=== PATIENT | male | born 1940 | race Caucasian/White ===

== ENCOUNTER → 2016-06-12 | Outpatient (CLI) | payer MEDICARE ==
--- NOTE | 2016-06-13 11:06 | ECHOF ---
Referral Reason:I42.0 cardiomyopathy MEASUREMENTS -------- HEIGHT: 182.9 cm WEIGHT: 102.1 kg BP: 148/71 RVIDd: 2.9 cm (< 3.3) IVSd: 1.2 cm (0.6 - 1.1) LVIDd: 4.9 cm (3.9 - 5.3) LVPWd: 1.1 cm (0.6 - 1.1) IVSs: 1.7 cm LVIDs: 3.0 cm LVPWs: 1.6 cm LA Diam: 3.9 cm (2.7 - 3.8) LAESV Index (A-L): 24.66 ml/m Ao Diam: 3.5 cm (2.0 - 3.7) AV Cusp: 2.6 cm (1.5 - 2.6) MV EXCURSION: 17.896 mm (> 18.000) MV EF SLOPE: 13 mm/s (70 - 150) EPSS: 0.6 cm MV E Holland: 0.49 m/s MV DecT: 181 ms MV A Holland: 0.77 m/s MV E/A Ratio: 0.63 AV maxP.49 mmHg AV meanP.18 mmHg RAP: 5.00 mmHg RVSP: 28.65 mmHg FINDINGS -------- Sinus rhythm. This was a technically good study. The left ventricular size is normal. There is borderline concentric left ventricular hypertrophy. Overall left ventricular systolic function is normal with, an EF between 55 - 60 %. The right ventricle is normal in size. Normal LA size by volume 22+/-6 ml/m2. The right atrium is normal in size. Interatrial septal aneurysm. Aortic valve is trileaflet and is mildly thickened. The mitral valve is normal. There is trace mitral regurgitation. Mild tricuspid regurgitation present. Right ventricular systolic pressure is normal at < 35 mmHg. Trace/mild (physiologic) pulmonic regurgitation. The aortic root size is normal. Normal inferior vena cava with normal inspiratory collapse consistent with estimated right atrial pressure of 5 mmHg. There is no pericardial effusion. CONCLUSIONS -------- 1. Sinus rhythm. 2. Right ventricular systolic pressure is normal at < 35 mmHg. 3. Trace/mild (physiologic) pulmonic regurgitation. 4. The aortic root size is normal. 5. Normal inferior vena cava with normal inspiratory collapse consistent with estimated right atrial pressure of 5 mmHg. 6. There is no pericardial effusion. 7. This was a technically good study. 8. There is borderline concentric left ventricular hypertrophy. 9. Overall left ventricular systolic function is normal with, an EF between 55 - 60 %. 10. Normal LA size by volume 22+/-6 ml/m2. 11. Interatrial septal aneurysm. 12. Aortic valve is trileaflet and is mildly thickened. 13. There is trace mitral regurgitation. 14. Mild tricuspid regurgitation present. EVENTS DIRECTOR: Violetta Saini RDCS
== END ==
LOC: RADECHMAIN 12:59
PROVIDERS: ATTEND Family Medicine
DX: I37.1 Nonrheumatic pulmonary valve insufficiency (principal); I51.7 Cardiomegaly; I25.3 Aneurysm of heart; I08.1 Rheumatic disorders of both mitral and tricuspid valves
CPT/HCPCS: 93306

== ENCOUNTER 2017-12-10 12:28 | Observation (INO) | payer MEDICARE ==
[2017-12-10 13:40] LABS: Glucose,Whole Blood 84 mg/dL (75-99)
[2017-12-10 13:53] LABS: Basophils % (A) 0 %; Eosinophils # (A) 0.2 k/uL (0-0.7); Eosinophils % (A) 3 %; HCT 39.9 % (39.0-53.0); HGB 13.4 gm/dL (13.0-17.5); Lymphocytes % (A) 20 %; MCH 31.5 pg (25.0-35.0); MCHC 33.6 g/dL (31.0-37.0); MCV 93.9 fL (80.0-100.0); Monocytes # (A) 0.3 k/uL (0-1.0); Monocytes % (A) 5 %; Neutrophils # (A) 3.4 k/uL (1.3-7.7); Neutrophils % (A) 69 %; Platelet Count 192 k/uL (150-450); RBC 4.25 m/uL (4.30-5.90); RDW 13.5 % (11.5-15.5); WBC 4.9 k/uL (3.8-10.6)
[2017-12-10 14:08] LABS: ALT 22 U/L (21-72); AST 23 U/L (17-59); Albumin 4.3 g/dL (3.5-5.0); Alkaline Phosphatase 72 U/L (38-126); Anion Gap 10 mmol/L; Blood Urea Nitrogen 16 mg/dL (9-20); Calcium 9.4 mg/dL (8.4-10.2); Carbon Dioxide 26 mmol/L (22-30); Chloride 104 mmol/L (98-107); Glucose 86 mg/dL (74-99); Potassium 4.5 mmol/L (3.5-5.1); Sodium 140 mmol/L (137-145); Total Bilirubin 0.7 mg/dL (0.2-1.3); Total Protein 7.1 g/dL (6.3-8.2)
[2017-12-10 14:09] LABS: INR 1.1 (<1.2); Partial Thromboplastin Time 23.8 sec (22.0-30.0); Prothrombin Time 10.5 sec (9.0-12.0)
[2017-12-10 14:28] LABS: Creatine Kinase MB 1.9 ng/mL (0.0-2.4)
[2017-12-10 14:34] LABS: Troponin I 0.045 ng/mL (0.000-0.034)
[2017-12-10] MEDS ORDERED: MECLIZINE 25 MG TAB PO STA (15:17)
--- NOTE | 2017-12-10 15:24 | ED ---
General Adult HPI - General Chief complaint: Dizziness Stated complaint: arm pain/dizziness/left side facial pain Time Seen by Provider: 12/10/17 15:00 Source: patient, RN notes reviewed Mode of arrival: wheelchair Limitations: no limitations - History of Present Illness Initial comments: This is a 77-year-old male who presents emergency Department complaining of dizziness. Patient states he rolled over in bed in the room started spinning. Patient states he rolled over the otherwise started spinning again. Patient states she has some tingling to the left side of his face but it was not numb. Patient's family states there was some facial droop earlier. Patient was unaware of this. Patient denies any headache patient denies any coordination problems currently patient denies any dizziness currently. Patient states it was definitely associated with rolling to the right or rolling to the left. Patient denies any chest pain or palpitations. Patient denies any difficulty breathing or shortness of breath. Patient denies any recent fever chills or cough. Patient denies abdominal pain patient denies nausea or vomiting. - Related Data Home Medications Medication Instructions Recorded Confirmed Atorvastatin [Lipitor] 20 mg PO HS 12/10/17 12/10/17 Carvedilol [Coreg] 3.125 mg PO BID 12/10/17 12/10/17 Levothyroxine Sodium [Synthroid] 75 mcg PO DAILY 12/10/17 12/10/17 Allergies Allergy/AdvReac Type Severity Reaction Status Date / Time No Known Allergies Allergy Verified 12/10/17 14:50 Review of Systems ROS Statement: Those systems with pertinent positive or pertinent negative responses have been documented in the HPI. ROS Other: All systems not noted in ROS Statement are negative. Past Medical History Past Medical History: Cancer, Hyperlipidemia, Hypertension, Thyroid Disorder Additional Past Medical History / Comment(s): colon cancer History of Any Multi-Drug Resistant Organisms: None Reported Past Surgical History: Bowel Resection, Hernia Repair Additional Past Surgical History / Comment(s): colostomy Past Psychological History: No Psychological Hx Reported Smoking Status: Former smoker Past Alcohol Use History: Occasional Past Drug Use History: None Reported General Exam - General Exam Comments Initial Comments: GENERAL: Patient is well-developed and well-nourished. Patient is nontoxic and well- hydrated and is in no acute distress. ENT: Neck is soft and supple. No significant lymphadenopathy is noted. Oropharynx is clear. Moist mucous membranes. Neck has full range of motion without eliciting any pain. EYES: The sclera were anicteric and conjunctiva were pink and moist. Extraocular movements were intact and pupils were equal round and reactive to light. Eyelids were unremarkable. PULMONARY: Unlabored respirations. Good breath sounds bilaterally. No audible rales rhonchi or wheezing was noted. CARDIOVASCULAR: There is a regular rate and rhythm without any murmurs gallops or rubs. ABDOMEN: Soft and nontender with normal bowel sounds. No palpable organomegaly was noted. There is no palpable pulsatile mass. SKIN: Skin is clear with no lesions or rashes and otherwise unremarkable. NEUROLOGIC: Patient is alert and oriented x3. Cranial nerves II through XII are grossly intact. Motor and sensory are also intact. Normal speech, volume and content. Symmetrical smile. Finger to nose cerebellar testing is negative. MUSCULOSKELETAL: Normal extremities with adequate strength and full range of motion. No lower extremity swelling or edema. No calf tenderness. LYMPHATICS: No significant lymphadenopathy is noted PSYCHIATRIC: Normal psychiatric evaluation. Normal interpersonal interactions appears functionally intact in deals appropriately with others. No signs of depression. No signs of anxiety. Limitations: no limitations Course Vital Signs 12/10/17 12:37 Temperature 98.3 F Pulse Rate 63 Respiratory 20 Rate Blood Pressure 143/82 O2 Sat by Pulse 96 Oximetry Medical Decision Making - Medical Decision Making Patient was not brought back to the room for 2-1/2 hours and not until his labs were already back and a troponin was elevated. Staff was early told that the EKG was abnormal to put him in a room as soon as possible that did not occur to almost 3 PM and when the patient was in the room no oxygen was applied and the patient was not on a monitor worker. An EKG was done at 1326 IM being made aware of this EKG at 323. EKG shows a normal sinus rhythm at 64 bpm GA interval is 206 QRS is 124 QT interval is 436 QTC is 449. Patient's EKG shows T-wave abnormalities in inferior leads as well as precordial leads V3 through V6. Patient has a right bundle branch block CT of the brain shows no acute abnormality. Patient's troponin was elevated. - Lab Data Result diagrams: 12/10/17 13:40 12/10/17 13:40 Lab Results 09/17/18 09/17/18 09/17/18 Range/Units 13:38 13:40 13:40 WBC 4.9 (3.8-10.6) k/uL RBC 4.25 L (4.30-5.90) m/uL Hgb 13.4 (13.0-17.5) gm/dL Hct 39.9 (39.0-53.0) % MCV 93.9 (80.0-100.0) fL MCH 31.5 (25.0-35.0) pg MCHC 33.6 (31.0-37.0) g/dL RDW 13.5 (11.5-15.5) % Plt Count 192 (150-450) k/uL Neutrophils % 69 % Lymphocytes % 20 % Monocytes % 5 % Eosinophils % 3 % Basophils % 0 % Neutrophils # 3.4 (1.3-7.7) k/uL Lymphocytes # 1.0 (1.0-4.8) k/uL Monocytes # 0.3 (0-1.0) k/uL Eosinophils # 0.2 (0-0.7) k/uL Basophils # 0.0 (0-0.2) k/uL PT (9.0-12.0) sec INR (<1.2) APTT (22.0-30.0) sec Sodium (137-145) mmol/L Potassium (3.5-5.1) mmol/L Chloride (98-107) mmol/L Carbon Dioxide (22-30) mmol/L Anion Gap mmol/L BUN (9-20) mg/dL Creatinine (0.66-1.25) mg/dL Est GFR (CKD-EPI)AfAm (>60 ml/min/1.73 sqM) Est GFR (CKD-EPI)NonAf (>60 ml/min/1.73 sqM) Glucose (74-99) mg/dL POC Glucose (mg/dL) 84 (75-99) mg/dL POC Glu Storeroom Attendant ID Jordin Andino Calcium (8.4-10.2) mg/dL Total Bilirubin (0.2-1.3) mg/dL AST (17-59) U/L ALT (21-72) U/L Alkaline Phosphatase (38-126) U/L Total Creatine Kinase 72 (55-170) U/L CK-MB (CK-2) 1.9 (0.0-2.4) ng/mL CK-MB (CK-2) Rel Index 2.6 Troponin I 0.045 H* (0.000-0.034) ng/mL Total Protein (6.3-8.2) g/dL Albumin (3.5-5.0) g/dL 12/10/17 12/10/17 Range/Units 13:40 13:40 WBC (3.8-10.6) k/uL RBC (4.30-5.90) m/uL Hgb (13.0-17.5) gm/dL Hct (39.0-53.0) % MCV (80.0-100.0) fL MCH (25.0-35.0) pg MCHC (31.0-37.0) g/dL RDW (11.5-15.5) % Plt Count (150-450) k/uL Neutrophils % % Lymphocytes % % Monocytes % % Eosinophils % % Basophils % % Neutrophils # (1.3-7.7) k/uL Lymphocytes # (1.0-4.8) k/uL Monocytes # (0-1.0) k/uL Eosinophils # (0-0.7) k/uL Basophils # (0-0.2) k/uL PT 10.5 (9.0-12.0) sec INR 1.1 (<1.2) APTT 23.8 (22.0-30.0) sec Sodium 140 (137-145) mmol/L Potassium 4.5 (3.5-5.1) mmol/L Chloride 104 (98-107) mmol/L Carbon Dioxide 26 (22-30) mmol/L Anion Gap 10 mmol/L BUN 16 (9-20) mg/dL Creatinine 0.82 (0.66-1.25) mg/dL Est GFR (CKD-EPI)AfAm >90 (>60 ml/min/1.73 sqM) Est GFR (CKD-EPI)NonAf 85 (>60 ml/min/1.73 sqM) Glucose 86 (74-99) mg/dL POC Glucose (mg/dL) (75-99) mg/dL POC Glu Storeroom Attendant ID Calcium 9.4 (8.4-10.2) mg/dL Total Bilirubin 0.7 (0.2-1.3) mg/dL AST 23 (17-59) U/L ALT 22 (21-72) U/L Alkaline Phosphatase 72 (38-126) U/L Total Creatine Kinase (55-170) U/L CK-MB (CK-2) (0.0-2.4) ng/mL CK-MB (CK-2) Rel Index Troponin I (0.000-0.034) ng/mL Total Protein 7.1 (6.3-8.2) g/dL Albumin 4.3 (3.5-5.0) g/dL Disposition Clinical Impression: Vertigo, Elevated troponin, TIA (transient ischemic attack) Disposition: ADMITTED IP TO THIS HOSP Referrals: David Romero MD [Primary Care Provider] - 1-2 days Time of Disposition: 16:27
--- NOTE | 2017-12-10 15:59 | CT ---
EXAMINATION TYPE: CT brain wo con DATE OF EXAM: 12/10/2017 COMPARISON: None HISTORY: weakness, headache and dizziness CT DLP: 1072.[address] of the brain was performed. The ventricles, basal cisterns and sulci overlying the cerebral convexities demonstrate mild enlargem ent. There is no evidence for intracranial hemorrhage or sulcal effacement. There is decreased attenuation about the periventricular white matter and deep white matter of both c erebral hemispheres, compatible with chronic small vessel ischemia. Differential diagnosis does inclu de demyelination. No mass effects are seen.No midline shift. Osseous calvarium is intact. If symptoms persist consider MRI. IMPRESSION: 1. Age related atrophic and chronic small vessel ischemic change without acute intracranial process s een at this time.
[2017-12-10] MEDS ORDERED: MECLIZINE 12.5 MG TAB PO PRN (16:33)
[2017-12-10] MEDS: ATORVASTATIN 20 MG TAB PO SCH (21:26)
[2017-12-10 22:25] LABS: Cholesterol 139 mg/dL (<200); HDL Cholesterol 49 mg/dL (40-60); LDL Cholesterol,Calculated 75 mg/dL (0-99); Triglycerides 76 mg/dL (<150)
[2017-12-11] MEDS: LEVOTHYROXINE 75 MCG TAB PO SCH (06:08)
--- NOTE | 2017-12-11 08:14 | P.CRDCN ---
History of Present Illness History of present illness: This is Dr. Mckeon dictating a consult on this patient The patient was interviewed and examined by me IMPRESSION / ASSESSMENT: Patient presenting with vertigo-like symptoms, consistent with benign positional vertigo. Computed tomography scan does not show any major abnormalities He has no cardiac symptoms but an abnormal looking ECG and hence troponins were drawn. These are borderline abnormal Os history of cardio myopathy in 2015 ejection fraction 45% with wall motion abnormalities described an echo. Last year he had a repeat echo which showed normal LV size and systolic function PLAN: Records from Dr. Romero's office, specifically his twelve-lead ECG from before 2-D echo and Doppler study Further recommendations thereafter HPI Patient presented with dizziness and vertigo-like symptoms every time he would roll in bed. He states that the room starts spinning when he would roll from one side to the other according to the family there was some facial drooping. He denies any chest discomfort any shortness of breath applications loss of consciousness or any cardiac symptoms Past history of hypertension, dyslipidemia as well as in 2015 a 2-D echo showed cardiomyopathy. He is on atorvastatin 20 mg daily carvedilol 3.125 g twice daily ROS: No fever chills or rigors, no cough, phlegm or expectoration, no nausea, vomiting or diarrhea, no hematuria, dysuria, no musculoskeletal complaints, no strokes or seizures, no skin lesions. He is a colostomy bag in place 10 years back he had a colorectal cancer surgery EXAMINATION Afebrile pulse rate in the 70s blood pressure 155/82 mmHg and 135/74 mmHg Heart sounds S1 and S2 are normal no murmurs or gallop or rub No current bruits Breath sounds are clear Abdomen is soft. He has a colostomy bag No lower extremity edema REVIEW OF LABS, ECG Twelve-lead ECG shows sinus rhythm mildly prolonged ME interval incomplete right bundle branch block pattern ST depression with T-wave inversion in V3 to V6 and biphasic T waves in leads 1 and aVL and inverted T waves in the inferior leads and this is his first ECG Normal hemoglobin 13.4, normal electrolytes normal kidney function LDL 75 total cholesterol 139 troponin I 0.45, 0.49, 0.051 Past Medical History Past Medical History: Cancer, Hyperlipidemia, Hypertension, Thyroid Disorder Additional Past Medical History / Comment(s): colon cancer, shingles when young History of Any Multi-Drug Resistant Organisms: None Reported Past Surgical History: Hernia Repair Additional Past Surgical History / Comment(s): bowel sx d/t cancer- has a colostomy Past Anesthesia/Blood Transfusion Reactions: No Reported Reaction Smoking Status: Former smoker - Past Family History Mother Family Medical History: Cancer Additional Family Medical History / Comment(s): "female cancer that spread" Father Family Medical History: CVA/TIA Additional Family Medical History / Comment(s): "heart problems, enlarged heart Medications and Allergies Home Medications Medication Instructions Recorded Confirmed Type Atorvastatin [Lipitor] 20 mg PO HS 12/10/17 12/10/17 History Carvedilol [Coreg] 3.125 mg PO BID 12/10/17 12/10/17 History Levothyroxine Sodium [Synthroid] 75 mcg PO DAILY 12/10/17 12/10/17 History Allergies Allergy/AdvReac Type Severity Reaction Status Date / Time No Known Allergies Allergy Verified 12/10/17 14:50 Physical Exam Vitals: Vital Signs Temp Pulse Pulse Resp BP BP BP 12/11/17 07:49 74 14 150/82 155/85 12/11/17 04:00 58 L 16 12/10/17 23:59 97 F L 57 L 16 12/10/17 20:00 96.9 F L 65 16 134/68 131/67 12/10/17 18:27 85 16 12/10/17 17:00 98.7 F 62 20 155/75 12/10/17 15:15 98.3 F 65 20 165/79 12/10/17 12:37 98.3 F 63 20 143/82 BP BP Pulse Ox 12/11/17 07:49 145/84 97 12/11/17 04:00 135/74 96 18 23:59 121/65 95 12/10/17 20:00 114/60 95 18 18:27 162/85 97 12/10/17 17:00 99 12/10/17 15:15 99 12/10/17 12:37 96 Intake and Output 12/10/17 12/11/17 12/11/17 22:59 06:59 14:59 Other: # Voids 2 1 Weight 99.1 kg Results 12/10/17 13:40 12/10/17 13:40 Cardiac Enzymes 12/10/17 12/10/17 12/10/17 Range/Units 13:40 13:40 20:25 AST 23 (17-59) U/L CK-MB (CK-2) 1.9 (0.0-2.4) ng/mL Troponin I 0.045 H* 0.049 H* (0.000-0.034) ng/mL 12/11/17 Range/Units 01:49 AST (17-59) U/L CK-MB (CK-2) (0.0-2.4) ng/mL Troponin I 0.051 H* (0.000-0.034) ng/mL Coagulation 12/10/17 Range/Units 13:40 PT 10.5 (9.0-12.0) sec APTT 23.8 (22.0-30.0) sec Lipids 12/10/17 Range/Units 13:40 Triglycerides 76 (<150) mg/dL Cholesterol 139 (<200) mg/dL HDL Cholesterol 49 (40-60) mg/dL CBC 12/10/17 Range/Units 13:40 WBC 4.9 (3.8-10.6) k/uL RBC 4.25 L (4.30-5.90) m/uL Hgb 13.4 (13.0-17.5) gm/dL Hct 39.9 (39.0-53.0) % Plt Count 192 (150-450) k/uL Comprehensive Metabolic Panel 12/10/17 Range/Units 13:40 Sodium 140 (137-145) mmol/L Potassium 4.5 (3.5-5.1) mmol/L Chloride 104 (98-107) mmol/L Carbon Dioxide 26 (22-30) mmol/L BUN 16 (9-20) mg/dL Creatinine 0.82 (0.66-1.25) mg/dL Glucose 86 (74-99) mg/dL Calcium 9.4 (8.4-10.2) mg/dL AST 23 (17-59) U/L ALT 22 (21-72) U/L Alkaline Phosphatase 72 (38-126) U/L Total Protein 7.1 (6.3-8.2) g/dL Albumin 4.3 (3.5-5.0) g/dL Current Medications Generic Name Dose Route Start Last Admin Trade Name Freq PRN Reason Stop Dose Admin Atorvastatin Calcium 20 mg 12/10/17 21:00 12/10/17 21:26 Lipitor PO 20 mg HS MAGI Administration Clopidogrel Bisulfate 75 mg 12/11/17 09:00 Plavix PO DAILY MAGI Levothyroxine Sodium 75 mcg 12/11/17 06:30 12/11/17 06:08 Synthroid PO 75 mcg DAILY@0630 MAGI Administration Meclizine HCl 12.5 mg 12/10/17 16:33 Antivert PO TID PRN Vertigo Intake and Output 12/10/17 12/11/17 12/11/17 22:59 06:59 14:59 Other: # Voids 2 1 Weight 99.1 kg 12/10/17 13:40 12/10/17 13:40
[2017-12-11] MEDS: CLOPIDOGREL 75 MG TAB PO SCH (08:37)
--- NOTE | 2017-12-11 08:46 | CONS ---
CONSULTATION DATE OF CONSULTATION: 12/10/2017 CHIEF COMPLAINT: Transient ischemic attack. HISTORY OF PRESENT ILLNESS: The patient is a pleasant 77-year-old male who is being evaluated today on 12/10/2017 by the neurology service per the request of Dr. العراقي for a transient ischemic attack. The patient was initially brought into [facility] Emergency Room with the chief complaint of dizziness. He states that when he woke up this morning, he felt like the room was spinning every time he tried to get up. The symptoms lasted only a few minutes and resolved spontaneously. He did have similar episodes yesterday as well. The patient also reported that he had a single episode of left facial numbness and tingling and his daughter noticed that he had some facial drooping on the left side. These symptoms also lasted several minutes and resolved spontaneously. He does not believe that the facial symptoms occurred while he was having vertigo. In the emergency room, a CT scan of the brain was done, which showed small-vessel ischemic changes and generalized atrophy. The patient does take aspirin 81 mg daily at home. His CBC, comprehensive metabolic profile and INR were reviewed and were normal. His cardiac enzymes showed a slightly elevated troponin I at 0.045. At the time of my evaluation, the patient is sitting up in his bed and appears to be in no acute distress. He denies any recurrence of any neurological symptoms. PAST MEDICAL HISTORY: Hypertension, dyslipidemia, hypothyroidism, history of colon cancer, history of bowel resection and hernia repair. SOCIAL HISTORY: The patient is a former smoker. He denies any drug use. He occasionally drinks alcohol. FAMILY HISTORY: Noncontributory. HOME MEDICATIONS: Reviewed in the chart. ALLERGIES: No known drug allergies. REVIEW OF SYSTEMS: CONSTITUTIONAL: Negative. EYES: Negative. ENT: As mentioned above. CARDIOVASCULAR: Negative. RESPIRATORY: Negative. NEUROLOGICAL: As mentioned above. GASTROINTESTINAL: Negative. GENITOURINARY: Negative. PSYCHIATRIC: Negative. ENDOCRINE: Positive for hypothyroidism. MUSCULOSKELETAL: Positive for occasional joint pain. DERMATOLOGICAL: Negative. PHYSICAL EXAM: Vital signs show a temperature of 98.7, pulse 62, respiration 20, blood pressure 155/75. GENERAL APPEARANCE: The patient is a well-developed, elderly male, who appears to be in no acute distress. HEENT: Normocephalic, atraumatic, no facial asymmetry is seen. Neck is supple with no masses felt. CARDIOVASCULAR: Regular rate and rhythm. ABDOMEN: Nontender, nondistended. Extremities showed no edema or clubbing. NEUROLOGICAL EXAM: The patient is alert, aware and oriented x3. Speech and language are normal. Strength is full in all 4 extremities. Sensory exam was normal to light touch in all 4 extremities. No pronator drift is seen. No dysmetria is noticed on [id number] testing. No facial asymmetry is seen on cranial nerve testing. IMPRESSION: 1. Transient ischemic attack. 2. Left facial numbness and weakness, resolved. 3. Dyslipidemia. 4. Hypertension. 5. Transient vertigo. RECOMMENDATION: The patient does appear to have suffered a transient ischemic attack with a transient episode of left facial drooping and numbness. These symptoms have completely resolved. He does take aspirin 81 mg daily at home. I will switch his aspirin to Plavix 75 mg daily. I will order a carotid Doppler, EEG, fasting lipid panel, and serum homocysteine level. Continue statin therapy for his dyslipidemia and continue blood pressure control. The patient will need either a CT angiogram or an MR angiogram which can be done in the outpatient setting. Continue the rest of your current workup and management. I will continue to follow with you. Further recommendations to follow. Thank you for allowing me to participate in the care of your patient. If you have any questions, please feel free to contact me. KYLAH / SLIMEN: [id number] /
--- NOTE | 2017-12-11 10:45 | P.HPIM ---
History of Present Illness 77-year-old male who presents emergency Department complaining of dizziness which is was room spinning around vertigo patient also complained of some questionable facial droop on the left side and numbness in the left side of the face which lasted for few minutes. All the symptoms resolved before he came to ER. Patient denied and unstable gait. Patient was evaluated by neurology that recommend switching aspirin to Plavix and continued on a statin. Patient will undergo carotid Doppler. Patient's symptoms of vertigo completely resolved at this point of time patient is a 10 by treatment with meclizine. Patient has minimally elevated troponins of 0.057 stable at that level with the some questionable EKG changes and showed they're old or new some ST depressions and biphasic T waves from V3 to V6 trying to obtain old EKGs. Denied any chest pain denied any short of breath lightheadedness orthopnea. Patient was unaware of this. Patient denies any headache patient denies any coordination problems currently patient denies any dizziness currently. Review of Systems REVIEW OF SYSTEMS: CONSTITUTIONAL: No fever, no malaise, no fatigue. HEENT: No recent visual problems or hearing problems. Denied any sore throat. CARDIOVASCULAR: No chest pain, orthopnea, PND, no palpitations, no syncope. PULMONARY: No shortness of breath, no cough, no hemoptysis. GASTROINTESTINAL: No diarrhea, no nausea, no vomiting, no abdominal pain. Normoactive bowel sounds. NEUROLOGICAL: As mentioned in HPI HEMATOLOGICAL: Denies any bleeding or petechiae. GENITOURINARY: Denies any burning micturition, frequency, or urgency. MUSCULOSKELETAL/RHEUMATOLOGICAL: Denies any joint pain, swelling, or any muscle pain. ENDOCRINE: Denies any polyuria or polydipsia. The rest of the 14-point review of systems is negative. Past Medical History Past Medical History: Cancer, Hyperlipidemia, Hypertension, Thyroid Disorder Additional Past Medical History / Comment(s): colon cancer, shingles when young History of Any Multi-Drug Resistant Organisms: None Reported Past Surgical History: Hernia Repair Additional Past Surgical History / Comment(s): bowel sx d/t cancer- has a colostomy Past Anesthesia/Blood Transfusion Reactions: No Reported Reaction Smoking Status: Former smoker - Past Family History Mother Family Medical History: Cancer Additional Family Medical History / Comment(s): "female cancer that spread" Father Family Medical History: CVA/TIA Additional Family Medical History / Comment(s): "heart problems, enlarged heart Medications and Allergies Home Medications Medication Instructions Recorded Confirmed Type Atorvastatin [Lipitor] 20 mg PO HS 12/10/17 12/10/17 History Carvedilol [Coreg] 3.125 mg PO BID 12/10/17 12/10/17 History Levothyroxine Sodium [Synthroid] 75 mcg PO DAILY 12/10/17 12/10/17 History Allergies Allergy/AdvReac Type Severity Reaction Status Date / Time No Known Allergies Allergy Verified 12/10/17 14:50 Physical Exam Vitals: Vital Signs Temp Pulse Pulse Resp BP BP BP 12/11/17 07:49 74 14 150/82 155/85 12/11/17 04:00 58 L 16 12/10/17 23:59 97 F L 57 L 16 12/10/17 20:00 96.9 F L 65 16 134/68 131/67 12/10/17 18:27 85 16 12/10/17 17:00 98.7 F 62 20 155/75 12/10/17 15:15 98.3 F 65 20 165/79 12/10/17 12:37 98.3 F 63 20 143/82 BP BP Pulse Ox 12/11/17 07:49 145/84 97 12/11/17 04:00 135/74 96 12/10/17 23:59 121/65 95 12/10/17 20:00 114/60 95 12/10/17 18:27 162/85 97 12/10/17 17:00 99 12/10/17 15:15 99 12/10/17 12:37 96 Intake and Output 12/10/17 12/11/17 12/11/17 22:59 06:59 14:59 Other: # Voids 2 1 Weight 99.1 kg PHYSICAL EXAMINATION: GENERAL: The patient is alert and oriented x3, not in any acute distress. Well developed, well nourished. HEENT: Pupils are round and equally reacting to light. EOMI. No scleral icterus. No conjunctival pallor. Normocephalic, atraumatic. No pharyngeal erythema. No thyromegaly. CARDIOVASCULAR: S1 and S2 present. No murmurs, rubs, or gallops. PULMONARY: Chest is clear to auscultation, no wheezing or crackles. ABDOMEN: Soft, nontender, nondistended, normoactive bowel sounds. No palpable organomegaly. MUSCULOSKELETAL: No joint swelling or deformity. EXTREMITIES: No cyanosis, clubbing, or pedal edema. NEUROLOGICAL: Gross neurological examination did not reveal any focal deficits. Patient's Romberg sign with eyes open is negative there is probable mild instability with eyes closed. There is no ataxia, no weakness gait is normal SKIN: No rashes. Results CBC & Chem 7: 12/10/17 13:40 12/10/17 13:40 Labs: Abnormal Lab Results - Last 24 Hours (Table) 12/10/17 12/10/17 12/10/17 Range/Units 13:40 13:40 20:25 RBC 4.25 L (4.30-5.90) m/uL Troponin I 0.045 H* 0.049 H* (0.000-0.034) ng/mL 12/11/17 Range/Units 01:49 RBC (4.30-5.90) m/uL Troponin I 0.051 H* (0.000-0.034) ng/mL Thrombosis Risk Factor Assmnt - Choose All That Apply Any of the Below Risk Factors Present?: Yes Each Factor Represents 1 point: Obesity (BMI >25) Other Risk Factors: Yes Each Risk Factor Represents 2 Points: Age 61-74 years Other congenital or acquired thrombophilia - If yes, enter type in comment: No Thrombosis Risk Factor Assessment Total Risk Factor Score: 3 Thrombosis Risk Factor Assessment Level: Moderate Risk Assessment and Plan Plan: -Possibility of a transient ischemic attack which I cannot completely rule out patient Aspinall were switched to Plavix and the patient will be continued on statin. -Elevated troponin with the EKG changes as mentioned above: Further management as per cardiology patient doesn't have any chest pain at this time. -Hypothyroidism next and heparin coronary artery disease -possible benign push vertigo patient's vertigo appears to be peripheral I do not believe patient had any cerebellar stroke
--- NOTE | 2017-12-11 11:12 | ECHOF ---
Referral Reason:vertigo MEASUREMENTS -------- HEIGHT: 182.9 cm WEIGHT: 98.9 kg BP: 145/84 RVIDd: 3.1 cm (< 3.3) IVSd: 1.0 cm (0.6 - 1.1) LVIDd: 4.9 cm (3.9 - 5.3) LVPWd: 1.2 cm (0.6 - 1.1) IVSs: 1.5 cm LVIDs: 3.3 cm LVPWs: 1.8 cm LA Diam: 4.2 cm (2.7 - 3.8) LAESV Index (A-L): 33.91 ml/m Ao Diam: 2.8 cm (2.0 - 3.7) AV Cusp: 2.3 cm (1.5 - 2.6) MV EXCURSION: 16.312 mm (> 18.000) MV EF SLOPE: 18 mm/s (70 - 150) EPSS: 0.7 cm MV E Holland: 0.35 m/s MV DecT: 124 ms MV A Holland: 0.65 m/s MV E/A Ratio: 0.53 RAP: 5.00 mmHg RVSP: 24.79 mmHg FINDINGS -------- Sinus rhythm. This was a technically adequate study. The left ventricular size is normal. There is borderline concentric left ventricular hypertrophy. Overall left ventricular systolic function is normal with, an EF between 55 - 60 %. The right ventricle is normal in size. LA is moderately dilated 34-39 ml/m2 The right atrium is normal in size. Aortic valve is trileaflet and is mildly thickened. Mild mitral annular calcification present. There is trace mitral regurgitation. Trace tricuspid regurgitation present. Right ventricular systolic pressure is normal at < 35 mmHg. Trace/mild (physiologic) pulmonic regurgitation. The aortic root size is normal. Normal inferior vena cava with normal inspiratory collapse consistent with estimated right atrial pre ssure of 5 mmHg. There is no pericardial effusion. CONCLUSIONS -------- 1. Sinus rhythm. 2. This was a technically adequate study. 3. The left ventricular size is normal. 4. There is borderline concentric left ventricular hypertrophy. 5. Overall left ventricular systolic function is normal with, an EF between 55 - 60 %. 6. The right ventricle is normal in size. 7. LA is moderately dilated 34-39 ml/m2 8. The right atrium is normal in size. 9. Aortic valve is trileaflet and is mildly thickened. 10. Mild mitral annular calcification present. 11. There is trace mitral regurgitation. 12. Trace tricuspid regurgitation present. 13. Right ventricular systolic pressure is normal at < 35 mmHg. 14. Trace/mild (physiologic) pulmonic regurgitation. 15. The aortic root size is normal. 16. Normal inferior vena cava with normal inspiratory collapse consistent with estimated right atrial pressure of 5 mmHg. 17. There is no pericardial effusion. COLLEGE PROFESSOR: Violetta Saini RDCS
--- NOTE | 2017-12-11 15:10 | EEG ---
ELECTROENCEPHALOGRAM REPORT DATE OF SERVICE: 12/11/2017 REASON FOR TESTING: Transient ischemic attack and dizziness. DESCRIPTION OF THE PROCEDURE: This EEG was performed using a 21 channel digital electroencephalograph, following international 10-20 system. DESCRIPTION OF THE RECORDING: From the beginning of the tracing, and with patient's eyes closed, the background rhythm was mostly consisting of 9 Hz alpha frequency in the posterior occipital leads. No obvious asymmetry is seen. Photic stimulation was performed with a minimal driving response seen. No pathological waves were elicited. Occasional movement and muscle artifacts are seen. Hyperventilation was not performed. The patient remains awake throughout the tracing. No epileptiform discharges were seen. His EKG lead showed a regular rate and rhythm. INTERPRETATION: This awake EEG can be considered within normal limits. There is no asymmetry seen. No epileptiform discharges were noticed. The absence of epileptiform discharges does not rule out the diagnosis of epilepsy; therefore, clinical correlation is recommended. MMLISY / SLIMEN: [id number] /
--- NOTE | 2017-12-11 16:08 | P.PN ---
Subjective Progress Note Date: 12/11/17 Patient is a pleasant 77-year-old male who is being followed by the neurology service for transient ischemic attack. Patient was brought to [facility] with complaints of dizziness. Patient states he woke up in the morning and felt like the room was spinning. Patient reports symptoms only lasted a few minutes and resolved spontaneously. Patient reports having previous episode the day before. Patient also reports episode of left facial numbness and daughter noticed that patient had left facial droop. Patient had computed tomography scan of the brain which showed small vessel ischemic changes and generalized atrophy. Patient denies any recurrence of symptoms since admission. At the time of my evaluation, patient is resting comfortably in bed and is asking to go home. Family is at the bedside. Objective - Vital Signs Vital signs: Vital Signs Temp 97 F L 12/10/17 23:59 Pulse 63 12/11/17 12:00 Resp 14 12/11/17 14:24 BP 148/75 12/11/17 12:00 Pulse Ox 97 12/11/17 12:00 Intake & Output 12/10/17 12/11/17 12/11/17 18:59 06:59 18:59 Intake Total 222 Balance 222 Weight 104.326 kg 99.1 kg Intake: Oral 222 Other: # Voids 1 3 - Exam PHYSICAL EXAM: GENERAL APPEARANCE: Patient is a well-developed, male who appears to be in no acute distress. HEENT: Normocephalic, atraumatic, no facial asymmetry is seen. Neck is supple with no masses felt. CARDIOVASCULAR: Regular rate and rhythm. ABDOMEN: Nontender, nondistended. EXTREMITIES: Show no edema or clubbing. NEUROLOGICAL EXAM: Patient is awake, alert, and oriented 3. Speech and language are normal. Strength is full in all 4 extremities. Sensory exam to light touch is normal in all 4 extremities. No facial asymmetry seen on cranial nerve testing. No tremors or seizure-like activity noted. - Labs CBC & Chem 7: 12/10/17 13:40 12/10/17 13:40 Labs: Abnormal Lab Results - Last 24 Hours (Table) 12/10/17 12/11/17 Range/Units 20:25 01:49 Troponin I 0.049 H* 0.051 H* (0.000-0.034) ng/mL Assessment and Plan Plan: Impression: 1. Transient ischemic attack 2. Left facial numbness and weakness, resolved 3. Dyslipidemia 4. Hypertension 5. Transient vertigo Recommendation: It does appear patient has suffered a transient ischemic attack with transient episode of left facial drooping and numbness. Patient's symptoms have completely resolved. I recommend patient continue Plavix 75 mg daily. Continue statin therapy and continue blood pressure control. EEG was normal. Lipid panel was within normal limits. Homocystine level is pending. CT of the brain showed age-related atrophy with chronic small vessel ischemic changes. Patient had carotid Doppler done and results are pending. Patient will need a CT angiogram or an MR angiogram which can be done in the outpatient setting. Continue neurological checks. Barring any significant stenosis on the carotid Dopplers, patient is cleared from a neurological standpoint. I performed an examination of the patient and discussed the management with the [employer]. I have reviewed the [employer] notes and agree with the findings and plan of care.
--- NOTE | 2017-12-11 17:21 | US ---
EXAMINATION TYPE: US carotid duplex BILAT DATE OF EXAM: 12/11/2017 COMPARISON: NONE CLINICAL HISTORY: 77-year-old male TIA TECHNIQUE: Carotid duplex ultrasound examination. Indirect Doppler criteria was utilized. FINDINGS: EXAM MEASUREMENTS: RIGHT: Peak Systolic Velocity (PSV) cm/sec ----- Right CCA: 87.0 ----- Right ICA: 86.4 ----- Right ECA: 89.9 ICA/CCA ratio: 1.0 RIGHT: End Diastole cm/sec ----- Right CCA: 19.8 ----- Right ICA: 26.6 ----- Right ECA: 6.1 LEFT: Peak Systolic Velocity (PSV) cm/sec ----- Left CCA: 69.6 ----- Left ICA: 86.4 ----- Left ECA: 90.4 ICA/CCA ratio: 1.2 LEFT: End Diastole cm/sec ----- Left CCA: 14.0 ----- Left ICA: 27.8 ----- Left ECA: 0.0 VERTEBRALS (direction of flow): Right Vertebral: Antegrade Left Vertebral: Antegrade Rhythm: Normal Film Mounter notes: Mild homogeneous plaque seen with no significant stenosis seen. IMPRESSION: No hemodynamically significant stenosis appreciated in either internal carotid artery. Criteria for Assigning % of Stenosis / Diameter reduction (Estimation based on the indirect measurements of the internal carotid artery velocities (ICA PSV). 1. Normal (no stenosis)=ICA PSV < 125 cm/s: ratio < 2.0: ICA EDV<40 cm/s. 2. Less than 50% stenosis=ICA PSV < 125 cm/s: ratio < 2.0: ICA EDV<40 cm/s. 3. 50 to 69% stenosis=ICA PSV of 125 to 230 cm/s: ration 2.0 ? 4.0: ICA EDV 40-100 cm/s. 4. Greater than 70% stenosis to near occlusion= ICA PSV > 230 cm/s: ratio > 4.0: ICA EDV > 100 cm/s. 5. Near occlusion= ICA PSV velocities may be low or undetectable: variable ratio and ICA EDV. 6. Total occlusion=unable to detect flow.
[2017-12-11] MEDS: ATORVASTATIN 20 MG TAB PO SCH (21:39)
[2017-12-12] MEDS: LEVOTHYROXINE 75 MCG TAB PO SCH (06:32)
[2017-12-12] MEDS: ATORVASTATIN 20 MG TAB PO SCH (08:17)
[2017-12-12] MEDS: CLOPIDOGREL 75 MG TAB PO SCH (08:17)
[2017-12-12 08:22] VITALS: BP 136/78; PULSE 63; RESP 16; TEMP 97.7
[2017-12-12] MEDS ORDERED: DOBUTamine DRIP for NUC MED 500 MG in DEXTROSE/WATER 1 250ML.BAG IV ONE (09:27)
--- NOTE | 2017-12-12 11:48 | P.DS ---
Providers Date of admission: 12/10/17 16:46 Attending physician: Lily العراقي Consults: 12/10/17 16:31 Consult Physician Routine Consulting Provider: [facility] Consult Reason/Comments: Elevated troponin Do you want consulting provider notified?: Yes Consult Physician Routine Consulting Provider: Shelbi Recio Consult Reason/Comments: TIA Do you want consulting provider notified?: Yes Primary care physician: [facility] Course: 77-year-old male who presents emergency Department complaining of dizziness which is was room spinning around vertigo patient also complained of some questionable facial droop on the left side and numbness in the left side of the face which lasted for few minutes. All the symptoms resolved before he came to ER. Patient denied and unstable gait. Patient was evaluated by neurology that recommend switching aspirin to Plavix and continued on a statin. Patient will undergo carotid Doppler. Patient's symptoms of vertigo completely resolved at this point of time patient is a 10 by treatment with meclizine. Patient has minimally elevated troponins of 0.057 stable at that level with the some questionable EKG changes and showed they're old or new some ST depressions and biphasic T waves from V3 to V6 trying to obtain old EKGs. Denied any chest pain denied any short of breath lightheadedness orthopnea. Patient was unaware of this. Patient denies any headache patient denies any coordination problems currently patient denies any dizziness currently. 12/12/2017 Patient is worked up for TIA all the workup is negative unsure whether patient has transient ischemic attack. Patient aspirin was switched to Plavix and is being discharged today. Regarding mild elevated troponin and EKG changes patient will follow up with the Dr. Kearney as an outpatient for outpatient stress test. Patient doesn't have any chest pain. Carotid Doppler is negative for any atherosclerotic occlusive disease. PHYSICAL EXAMINATION: GENERAL: The patient is alert and oriented x3, not in any acute distress. Well developed, well nourished. HEENT: Pupils are round and equally reacting to light. EOMI. No scleral icterus. No conjunctival pallor. Normocephalic, atraumatic. No pharyngeal erythema. No thyromegaly. CARDIOVASCULAR: S1 and S2 present. No murmurs, rubs, or gallops. PULMONARY: Chest is clear to auscultation, no wheezing or crackles. ABDOMEN: Soft, nontender, nondistended, normoactive bowel sounds. No palpable organomegaly. MUSCULOSKELETAL: No joint swelling or deformity. EXTREMITIES: No cyanosis, clubbing, or pedal edema. NEUROLOGICAL: Gross neurological examination did not reveal any focal deficits. Patient's Romberg sign with eyes open is negative there is probable mild instability with eyes closed. There is no ataxia, no weakness gait is normal SKIN: No rashes. Assessment and Plan Plan: -Possibility of a transient ischemic attack which I cannot completely rule out patient Aspinl was switched to Plavix and the patient will be continued on statin. -Elevated troponin with the EKG changes -Hypothyroidism next and heparin coronary artery disease -possible benign positional vertigo patient's vertigo appears to be peripheral I do not believe patient had any cerebellar stroke Plan - Discharge Summary Discharge Rx Participant: No New Discharge Prescriptions: New Clopidogrel Bisulfate [Plavix] 75 mg PO DAILY #30 tab No Action Levothyroxine Sodium [Synthroid] 75 mcg PO DAILY Atorvastatin [Lipitor] 20 mg PO HS Carvedilol [Coreg] 3.125 mg PO BID Discharge Medication List Atorvastatin [Lipitor] 20 mg PO HS 12/10/17 [History] Carvedilol [Coreg] 3.125 mg PO BID 12/10/17 [History] Levothyroxine Sodium [Synthroid] 75 mcg PO DAILY 12/10/17 [History] Clopidogrel Bisulfate [Plavix] 75 mg PO DAILY #30 tab 12/12/17 [Rx] Follow up Appointment(s)/Referral(s): Mike Mckeon MD [STAFF PHYSICIAN] - 01/02/18 2:30 pm David Romero MD [Primary Care Provider] - 12/19/17 11:30 am Shelbi Reico MD [STAFF PHYSICIAN] - 3 Weeks Patient Instructions/Handouts: Transient Ischemic Attack (DC), Vertigo (DC), Paresthesia (GEN)
--- NOTE | 2017-12-12 15:25 | P.PN ---
Subjective Progress Note Date: 12/12/17 Patient presented to the hospital with vertigo-like symptoms, consistent with benign positional vertigo. Seen in consultation by Dr. Mckeon. Patient was noted to have abnormality in troponin, not consistent with acute coronary syndrome, also noted to have EKG changes. For this reason he was sized undergo dobutamine echocardiographic study which was scheduled for today. His echo which was performed revealed normal left ventricular systolic function. Because of patient had breakfast, his test was canceled for today. Arrangements being made for the patient to be discharged home, he will see Dr. Mo in the office in one week and an outpatient stress test will be scheduled for him at that time. Hemodynamically he is stable with a blood pressure 130/70 with a heart rate in the 60s, 95% on room air. Objective - Vital Signs Vital signs: Vital Signs Temp 97.7 F 12/12/17 08:00 Pulse 63 12/12/17 08:00 Resp 16 12/12/17 11:14 BP 136/78 12/12/17 08:00 Pulse Ox 95 12/12/17 08:00 Intake & Output 12/11/17 12/12/17 12/12/17 18:59 06:59 18:59 Intake Total 222 240 480 Balance 222 240 480 Weight 98.4 kg Intake: Oral 222 240 480 Other: Voiding Method Toilet Toilet # Voids 3 1 - Exam PHYSICAL EXAMINATION: GENERAL: 77-year-old gentleman in no acute distress at the time of my examination HEENT: Head is atraumatic, normocephalic. Pupils equal, round. Sclera anicteric. Conjunctiva are clear. Mucous membranes of the mouth are moist. Neck is supple. There is no elevated jugular venous pressure.] bruit is heard. HEART EXAMINATION: Heart S1, S2 normal. No murmur or gallop heard. CHEST EXAMINATION: Lungs are clear to auscultation and precussion. No chest wall tenderness is noted on palpation or with deep breathing. ABDOMEN: Soft, nontender. Bowel sounds are heard. No organomegaly noted. EXTREMITIES: 2+ peripheral pulses with no evidence of peripheral edema and no calf tenderness noted. NEUROLOGIC patient is awake, alert and oriented ?-3. . - Labs CBC & Chem 7: 12/10/17 13:40 12/10/17 13:40 Assessment and Plan Plan: Assessment and plan #1 positional vertigo, rule out TIA #2 abnormal troponins, not consistent with acute coronary syndrome likely secondary to supply and demand mismatch. EKG shows a normal sinus rhythm with nonspecific ST-T wave changes. #3 hypertension #4 hyperlipidemia Plan Cardiology's perspective, patient may be able to be discharged home today. We' ll make him a follow-up appointment to see Dr. Mckeon in the office within one week. Outpatient stress test will be performed. DNP note has been reviewed, I agree with a documented findings and plan of care. Patient was seen and examined.
[2017-12-13] MEDS ORDERED: ATORVASTATIN 40 MG TAB PO SCH (21:00)
== END 2017-12-12 13:23 | disposition home or self-care (01) ==
LOC: EC 12:28 → 6SEL 16:46
PROVIDERS: ADMIT Hospitalist; ATTEND Hospitalist
DX: R42 Dizziness and giddiness (principal); I45.10 Unspecified right bundle-branch block; R77.8 Other specified abnormalities of plasma proteins; G45.9 Transient cerebral ischemic attack, unspecified; E78.5 Hyperlipidemia, unspecified; I10 Essential (primary) hypertension; I42.9 Cardiomyopathy, unspecified; E03.9 Hypothyroidism, unspecified; Z85.038 Personal history of other malignant neoplasm of large intestine; R29.700 NIHSS score 0; Z93.3 Colostomy status; Z87.891 Personal history of nicotine dependence; Z79.890 Hormone replacement therapy; Z79.899 Other long term (current) drug therapy; Z79.82 Long term (current) use of aspirin
CPT/HCPCS: 99285; 36415; 95819; 93005; 93306; 97161; 97165; 80061; 80053; 82550; 82553; 84484 ×2; 85025; 85610; 85730; 83090; 93880; 70450; G0378 ×3

== ENCOUNTER → 2018-02-18 | Outpatient (CLI) | payer MEDICARE ==
--- NOTE | 2018-02-19 05:25 | MR ---
EXAMINATION TYPE: MR angio head wo con DATE OF EXAM: 02/18/2018 COMPARISON: CT brain December 10, 2017. HISTORY: TIA TECHNIQUE: Time of flight images focusing on the [place]oh of [place] were performed without contrast.. 2-D and 3-D postprocessing imaging is performed on MRI scanner and reviewed. FINDINGS: There is dominant left vertebral artery. Vertebral arteries are patent to basilar junction. Tortuous course to basilar artery is present. There is patent right posterior communicating artery. Hypoplastic left posterior communicating artery is seen. No significant focal stenosis or aneurysmal change is seen in the posterior circulation. Images of the anterior circulation show poor visualization or hypoplastic anterior communicating phil ry. No significant focal stenosis or aneurysmal changes are evident. IMPRESSION: No significant focal stenosis or aneurysmal change of level of cabazon of Miller.
== END ==
LOC: RADMRIMAIN 13:37
PROVIDERS: ATTEND Psychiatry & Neurology Neurology
DX: R42 Dizziness and giddiness (principal)
CPT/HCPCS: 70544